=== PATIENT | female | born 1945 | race Caucasian/White ===

== ENCOUNTER 2024-06-13 17:01 | Emergency (ER) | payer MEDICARE ==
--- NOTE | 2024-06-13 17:05 | ED ---
General Adult HPI - General Source: patient, RN notes reviewed <Judy Euceda - Last Filed: 06/13/24 17:04> - General Source: RN notes reviewed, old records reviewed, Caregiver Mode of arrival: ambulatory Limitations: no limitations - History of Present Illness -: minutes(s) Location: head, face, chest Severity scale (1-10): 3 Quality: burning Consistency: constant (Moving) Improves with: medication Worsens with: none Associated Symptoms: denies other symptoms <Flavio France - Last Filed: 06/19/24 21:55> - General Stated complaint: ABN labs Time Seen by Provider: 06/13/24 17:04 - History of Present Illness Initial comments: Quick note: 79-year-old female presents to the emergency department for reaction to contrast during outpatient CT scan. She is unsure if she is having had a reaction to this in the past. She admits to some throat irritation and coughing. She also notes itching around her eyes. (Judy Euceda) This is an 79 female to the ER for evaluation of contrast reaction due to outpatient CT scan of the abdomen pelvis. Patient currently has no chest pain shortness of breath abdominal pain no headache and feels improved are much improved on arrival to the ER (Flavio France) - Related Data Allergies Allergy/AdvReac Type Severity Reaction Status Date / Time lidocaine Allergy Unknown Verified 06/13/24 17:08 tetracycline Allergy Unknown Verified 06/13/24 17:08 Iodinated Contrast Media AdvReac Rash/Hives Verified 06/13/24 17:08 Review of Systems ROS Other: All systems not noted in ROS Statement are negative. <Judy Euceda - Last Filed: 06/13/24 17:04> ROS Other: All systems not noted in ROS Statement are negative. <Flavio France - Last Filed: 06/19/24 21:55> ROS Statement: Those systems with pertinent positive or pertinent negative responses have been documented in the HPI. General Exam <Judy Euceda - Last Filed: 06/13/24 17:04> General appearance: alert, in no apparent distress Head exam: Present: atraumatic, normocephalic, normal inspection Eye exam: Present: normal appearance, PERRL, EOMI. Absent: scleral icterus, conjunctival injection, periorbital swelling ENT exam: Present: normal exam, mucous membranes moist Neck exam: Present: normal inspection. Absent: tenderness, meningismus, lymphadenopathy Respiratory exam: Present: normal lung sounds bilaterally. Absent: respiratory distress, wheezes, rales, rhonchi, stridor Cardiovascular Exam: Present: regular rate, normal rhythm, normal heart sounds. Absent: systolic murmur, diastolic murmur, rubs, gallop, clicks GI/Abdominal exam: Present: soft, normal bowel sounds. Absent: distended, tenderness, guarding, rebound, rigid Extremities exam: Present: normal inspection, full ROM, normal capillary refill. Absent: tenderness, pedal edema, joint swelling, calf tenderness Back exam: Present: normal inspection Neurological exam: Present: alert, oriented X3, CN II-XII intact Psychiatric exam: Present: normal affect, normal mood Skin exam: Present: warm, dry, intact, normal color. Absent: rash <Flavio France - Last Filed: 06/19/24 21:55> - General Exam Comments Initial Comments: Visual Physical Exam Vital signs reviewed General: Well-appearing, nontoxic, no acute distress. Head: Normocephalic, atraumatic Eyes: PERRLA, EOMI ENT: Airway patent Chest: Nonlabored breathing Skin: No visual rash, normal skin tone Neuro: Alert and oriented 3 Musculoskeletal: No gross abnormalities (SinakaJudy) Course <Flavio France - Last Filed: 06/19/24 21:55> Vital Signs 06/13/24 06/13/24 06/13/24 17:03 17:54 17:59 Temperature 98.1 F 98.1 F Pulse Rate 85 64 Respiratory 22 18 20 Rate Blood Pressure 221/111 217/98 O2 Sat by Pulse 99 98 Oximetry 06/13/24 18:50 Temperature Pulse Rate 65 Respiratory 18 Rate Blood Pressure 185/86 O2 Sat by Pulse 97 Oximetry - Reevaluation(s) Reevaluation #1: Medical records reviewed (Flavio France) Reevaluation #2: Patient symptoms improved (Flavio France) Reevaluation #3: Patient informed of results and questions answered (Flavio France) Reevaluation #4: Was pt. sent in by a medical professional or institution ([facility], [facility], urgent care, hospital, or group home...) When possible be specific @ -no Did you speak to anyone other than the patient for history (EMS, parent, family, police, friend...)? What history was obtained from this source @ -no Did you review nursing and triage notes (agree or disagree)? Why? @ -agree Are old charts reviewed (outside hosp., previous admission, EMS record, old EKG, old radiological studies, urgent care reports/EKG's, group home records)? Report findings @ -yes Differential Diagnosis (chest pain, altered mental status, abdominal pain women, abdominal pain men, vaginal bleeding, weakness, fever, dyspnea, syncope, headache, dizziness, GI bleed, back pain, seizure, CVA, palpatations, mental health, musculoskeletal)? @ -prior EKG interpreted by me (3pts min.). @ -yes X-rays interpreted by me (1pt min.). @ -no CT interpreted by me (1pt min.). @ -no U/S interpreted by me (1pt. min.). @ -no What testing was considered but not performed or refused? (CT, X-rays, U/S, lab s)? Why? @ -none What meds were considered but not given or refused? Why? @ -none Did you discuss the management of the patient with other professionals (professionals i.e. [facility] Hodges, [facility], lab, RT, psych nurse, social media designer, customer account administrator, teacher, assurance officer, onsite case manager)? Give summary @ -no Was smoking cessation discussed for >3mins.? @ -no Was critical care preformed (if so, how long)? @ -no Were there social determinants of health that impacted care today? How? (Homelessness, low income, unemployed, alcoholism, drug addiction, transportation, low edu. Level, literacy, decrease access to med. care, senior living, rehab)? @ -none Was there de-escalation of care discussed even if they declined (Discuss DNR or withdrawal of care, Hospice)? DNR status @ -no What co-morbidities impacted this encounter? (DM, HTN, Smoking, COPD, CAD, Cancer, CVA, ARF, Chemo, Hep., AIDS, mental health diagnosis, sleep apnea, morbid obesity)? @ -none Was patient admitted / discharged? Hospital course, mention meds given and route, prescriptions, significant lab abnormalities, going to OR and other pertinent info. @ - 79-year-old female to ER for contrast reaction, though symptoms are resolved here in the ER and she can be discharged Discharge Undiagnosed new problem with uncertain prognosis? @ -no Drug Therapy requiring intensive monitoring for toxicity (Heparin, Nitro, Insulin, Cardizem)? @ -no Were any procedures done? @ -no Diagnosis/symptom? @ -Contrast reaction Acute, or Chronic, or Acute on Chronic? @ -Acute Uncomplicated (without systemic symptoms) or Complicated (systemic symptoms)? @ -Complicated Side effects of treatment? @ -no Exacerbation, Progression, or Severe Exacerbation? @ -exacerbation Poses a threat to life or bodily function? How? (Chest pain, USA, SC, pneumonia, PE, COPD, DKA, ARF, appy, cholecystitis, CVA, Diverticulitis, Homicidal, Suicidal, threat to staff... and all critical care pts) @ -yes-allergic reaction to contrast (Flavio France) EKG Findings - EKG Comments: EKG Findings:: EKG is sinus bradycardia 59 NH 163 QRS 81 QTc 423 - EKG Results: EKG: interpreted by ERMD <Flavio France - Last Filed: 06/19/24 21:55> Medical Decision Making <Judy Euceda - Last Filed: 06/13/24 17:04> - Lab Data Result diagrams: 06/13/24 17:17 06/13/24 17:17 - EKG Data -: EKG Interpreted by Me <Flavio France - Last Filed: 06/19/24 21:55> - Medical Decision Making Quick note preformed and electronically signed by Judy Euceda PA-C (Judy Euceda) 79-year-old female to ER for contrast reaction, though symptoms are resolved here in the ER and she can be discharged (Flavio France) - Lab Data Lab Results 06/13/24 06/13/24 06/13/24 Range/Units 17:17 17:17 17:17 WBC 7.4 (3.8-10.6) k/uL RBC 4.99 (3.80-5.40) m/uL Hgb 14.0 (11.4-16.0) gm/dL Hct 43.7 (34.0-46.0) % MCV 87.5 (80.0-100.0) fL MCH 28.0 (25.0-35.0) pg MCHC 32.0 (31.0-37.0) g/dL RDW 14.2 (11.5-15.5) % Plt Count 256 (150-450) k/uL MPV 9.6 Neutrophils % 61 % Lymphocytes % 28 % Monocytes % 5 % Eosinophils % 3 % Basophils % 1 % Neutrophils # 4.5 (1.3-7.7) k/uL Lymphocytes # 2.1 (1.0-4.8) k/uL Monocytes # 0.4 (0-1.0) k/uL Eosinophils # 0.2 (0-0.7) k/uL Basophils # 0.1 (0-0.2) k/uL PT 10.1 (10.0-12.5) sec INR 0.9 (<1.2) APTT 22.9 (22.0-30.0) sec Sodium 135 L (137-145) mmol/L Potassium 4.3 (3.5-5.1) mmol/L Chloride 105 (98-107) mmol/L Carbon Dioxide 22 (22-30) mmol/L Anion Gap 8 mmol/L BUN 10 (7-17) mg/dL Creatinine 1.07 H (0.52-1.04) mg/dL Est GFR (CKD-EPI)AfAm 57 (>60 ml/min/1.73 sqM) Est GFR (CKD-EPI)NonAf 49 (>60 ml/min/1.73 sqM) Glucose 88 (74-99) mg/dL Calcium 9.8 (8.4-10.2) mg/dL Magnesium 1.8 (1.6-2.3) mg/dL Total Bilirubin 0.6 (0.2-1.3) mg/dL AST 26 (14-36) U/L ALT 15 (4-34) U/L Alkaline Phosphatase 81 (38-126) U/L Troponin I (0.000-0.034) ng/mL Total Protein 7.5 (6.3-8.2) g/dL Albumin 4.8 (3.5-5.0) g/dL 06/13/24 Range/Units 17:17 WBC (3.8-10.6) k/uL RBC (3.80-5.40) m/uL Hgb (11.4-16.0) gm/dL Hct (34.0-46.0) % MCV (80.0-100.0) fL MCH (25.0-35.0) pg MCHC (31.0-37.0) g/dL RDW (11.5-15.5) % Plt Count (150-450) k/uL MPV Neutrophils % % Lymphocytes % % Monocytes % % Eosinophils % % Basophils % % Neutrophils # (1.3-7.7) k/uL Lymphocytes # (1.0-4.8) k/uL Monocytes # (0-1.0) k/uL Eosinophils # (0-0.7) k/uL Basophils # (0-0.2) k/uL PT (10.0-12.5) sec INR (<1.2) APTT (22.0-30.0) sec Sodium (137-145) mmol/L Potassium (3.5-5.1) mmol/L Chloride (98-107) mmol/L Carbon Dioxide (22-30) mmol/L Anion Gap mmol/L BUN (7-17) mg/dL Creatinine (0.52-1.04) mg/dL Est GFR (CKD-EPI)AfAm (>60 ml/min/1.73 sqM) Est GFR (CKD-EPI)NonAf (>60 ml/min/1.73 sqM) Glucose (74-99) mg/dL Calcium (8.4-10.2) mg/dL Magnesium (1.6-2.3) mg/dL Total Bilirubin (0.2-1.3) mg/dL AST (14-36) U/L ALT (4-34) U/L Alkaline Phosphatase (38-126) U/L Troponin I <0.012 (0.000-0.034) ng/mL Total Protein (6.3-8.2) g/dL Albumin (3.5-5.0) g/dL Disposition <Judy Euceda - Last Filed: 06/13/24 17:04> Is patient prescribed a controlled substance at d/c from ED?: No Time of Disposition: 19:00 <Flavio France - Last Filed: 06/19/24 21:55> Clinical Impression: Allergic reaction, Allergic reaction to drug Disposition: HOME SELF-CARE Condition: Fair Instructions (If sedation given, give patient instructions): Anaphylaxis (ED) Referrals: Seema Elizondo DO [Primary Care Provider] - 1-2 days
[2024-06-13 17:07] VITALS: TEMP 98.1
[2024-06-13] MEDS: FAMOTIDINE 20 MG/2 ML VIAL IV STA (17:11)
[2024-06-13] MEDS: methylPREDNISolone SOD SUCCI 125 MG/2 ML VIAL IV STA (17:11)
[2024-06-13] MEDS: diphenhydrAMINE 50 MG/ML 1 ML VIAL IVP STA (17:11)
[2024-06-13 17:34] LABS: Basophils # (A) 0.1 k/uL (0-0.2); Basophils % (A) 1 %; Eosinophils # (A) 0.2 k/uL (0-0.7); Eosinophils % (A) 3 %; HCT 43.7 % (34.0-46.0); Lymphocytes # (A) 2.1 k/uL (1.0-4.8); Lymphocytes % (A) 28 %; MCV 87.5 fL (80.0-100.0); Mean Platelet Volume 9.6; Monocytes # (A) 0.4 k/uL (0-1.0); Monocytes % (A) 5 %; Neutrophils # (A) 4.5 k/uL (1.3-7.7); Neutrophils % (A) 61 %; Platelet Count 256 k/uL (150-450); RBC 4.99 m/uL (3.80-5.40); RDW 14.2 % (11.5-15.5); WBC 7.4 k/uL (3.8-10.6)
[2024-06-13 17:47] LABS: INR 0.9 (<1.2); Partial Thromboplastin Time 22.9 sec (22.0-30.0); Prothrombin Time 10.1 sec (10.0-12.5)
[2024-06-13] MEDS: SODIUM CHLORIDE 0.9% 1,000 ML IV STA (18:07)
[2024-06-13] MEDS: LABETALOL 5 MG/ML VIAL MDV IVP STA (18:07)
[2024-06-13 18:20] LABS: ALT 15 U/L (4-34); AST 26 U/L (14-36); African American GFR (CKD) 57 (>60 ml/min/1.73 sqM); Albumin 4.8 g/dL (3.5-5.0); Alkaline Phosphatase 81 U/L (38-126); Anion Gap 8 mmol/L; Blood Urea Nitrogen 10 mg/dL (7-17); Calcium 9.8 mg/dL (8.4-10.2); Carbon Dioxide 22 mmol/L (22-30); Chloride 105 mmol/L (98-107); Glucose 88 mg/dL (74-99); Magnesium 1.8 mg/dL (1.6-2.3); Non-African American GFR(CKD) 49 (>60 ml/min/1.73 sqM); Potassium 4.3 mmol/L (3.5-5.1); Sodium 135 mmol/L (137-145); Total Bilirubin 0.6 mg/dL (0.2-1.3); Total Protein 7.5 g/dL (6.3-8.2)
[2024-06-13 18:53] VITALS: BP 185/86; PULSE 65; RESP 18
== END 2024-06-13 19:12 | disposition home or self-care (01) ==
LOC: EC 17:01
DX: T78.40XA Allergy, unspecified, initial encounter (principal); Z91.041 Radiographic dye allergy status; Z88.5 Allergy status to narcotic agent
CPT/HCPCS: 36415; 93005; 80053; 83735; 84484; 85025; 85610; 85730; 99283; 96374; 96375; 96361; J1200; J3490; J1920; J2919

== ENCOUNTER → 2024-06-13 | Outpatient (CLI) | payer MEDICARE ==
[2024-06-13 15:39] LABS: African American GFR (CKD) 51 (>60 ml/min/1.73 sqM); Blood Urea Nitrogen 11 mg/dL (7-17); Non-African American GFR(CKD) 44 (>60 ml/min/1.73 sqM)
--- NOTE | 2024-06-13 20:28 | CT ---
EXAMINATION TYPE: CT abdomen pelvis w con DATE OF EXAM: 06/13/2024 5:22 PM COMPARISON: None. CLINICAL INDICATION: Female, 79 years old with history of R10.33 PERIUMBILICAL PAIN; Periumbilical pa in x 6 months TECHNIQUE: Axial CT abdomen pelvis w con;Sagittal and coronal reformats were created on a separate w orkstation. Contrast used:80 mL of Isovue 300 with IV Contrast, (none if empty) Oral contrast used: with Oral Contrast (none if empty) CT DLP: 1309 mGycm, Automated exposure control for dose reduction was used. FINDINGS: LOWER CHEST: Unremarkable ABDOMEN LIVER: Diffusely hypoattenuating parenchyma. GALLBLADDER AND BILE DUCTS: Cholelithiasis with large stone in the fundus measuring approximately 2.1 cm. PANCREAS: Unremarkable. SPLEEN: Unremarkable. ADRENAL GLANDS: Unremarkable. KIDNEYS AND URETERS: No evidence of hydronephrosis or renal calculus. The ureters are unremarkable. Lobulated appearance with fibroglandular bilaterally. PELVIS BLADDER: No evidence for wall thickening or mass given limitations of exam. REPRODUCTIVE: Calcified heterogeneous fibroid uterus. ABDOMEN & PELVIS STOMACH AND BOWEL: Stomach and duodenum are unremarkable. Mild apparent wall thickening of the duoden um is felt to most likely reflect underdistention. No associated adjacent mesenteric inflammation. No evidence of bowel obstruction. PERITONEUM/RETROPERITONEUM: No evidence of pneumoperitoneum or free fluid. VASCULATURE: No evidence of aortic aneurysm. MUSCULOSKELETAL: No acute osseous abnormalities LYMPH NODES: No gross evidence for lymphadenopathy. SOFT TISSUE/ABDOMINAL WALL: Unremarkable IMPRESSION: 1. No acute abnormality in the abdomen/pelvis. 2. Cholelithiasis with large gallstone in the fundus measuring 2.[address] evidence of acute sera cystitis. 3. Hepatic steatosis. [facility], , 06/13/2024 8:26 PM
== END | disposition home or self-care (01) ==
LOC: RADCTMAIN 15:00
PROVIDERS: ATTEND Family Medicine
DX: K80.20 Calculus of gallbladder without cholecystitis without obstruction (principal); K76.0 Fatty (change of) liver, not elsewhere classified; R10.33 Periumbilical pain
CPT/HCPCS: 82565; 84520; 74177; 36415; Q9967